=== PATIENT | female | born 1960 | race Caucasian/White ===

== ENCOUNTER 2017-11-25 06:29 | Inpatient (IN) | payer OTHER ==
[2017-11-03 13:31] VITALS: BMI 38.0
--- NOTE | 2017-11-03 14:12 | PAT Medication Instructions ---
Service Date Nov 03, 2017. Current Home Medication List Albuterol Hfa (Ventolin Hfa), 2 PUFFS INH Q6H PRN for PRN Alprazolam (Xanax), 0.25 MG PO BID Amlodipine (Norvasc), 10 MG PO QAM Chlorthalidone (Hygroton), 25 MG PO QAM Cyclobenzaprine Hcl (Flexeril), 10 MG PO HS PRN for RN Diphenhydramine-Acetaminophen (Percogesic), 2 TAB PO PRN Duloxetine HCl (Cymbalta), 1 CAP PO BID Fluticasone Furoate-Vilanterol (Breo Ellipta), 1 PUFF INH QAM Lisinopril (Lisinopril), 20 MG PO QAM Magnesium Sulfate (Laxative) (Epsom Salt), 1 DOSE TOP PRN Multiple Vitamins W/ Minerals (Hair Skin and Nails Formu), 2 TAB PO QAM Multivitamin (Multivitamin), 2 TAB PO QAM Pantoprazole (Protonix), 40 MG PO QAM Rizatriptan Benzoate (Maxalt), 10 MG PO UD PRN for RN Rosuvastatin Calcium (Crestor), 10 MG PO QAM [Vicodin], 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 Instructions For Your Scheduled Surgery - Hold the following medications the morning of surgery: Chlorthalidone (Hygroton), 25 MG PO QAM Cyclobenzaprine Hcl (Flexeril), 10 MG PO HS PRN for RN Lisinopril (Lisinopril), 20 MG PO QAM Magnesium Sulfate (Laxative) (Epsom Salt), 1 DOSE TOP PRN Multiple Vitamins W/ Minerals (Hair Skin and Nails Formu), 2 TAB PO QAM Multivitamin (Multivitamin), 2 TAB PO QAM - Take the following medications the morning of surgery with a sip of water: Albuterol Hfa (Ventolin Hfa), 2 PUFFS INH Q6H PRN for PRN (if needed, and bring it with you to the hospital) Alprazolam (Xanax), 0.25 MG PO BID Amlodipine (Norvasc), 10 MG PO QAM Diphenhydramine-Acetaminophen (Percogesic), 2 TAB PO PRN (if needed, can be taken up to four hours before surgery) Duloxetine HCl (Cymbalta), 1 CAP PO BID Fluticasone Furoate-Vilanterol (Breo Ellipta), 1 PUFF INH QAM Pantoprazole (Protonix), 40 MG PO QAM Rizatriptan Benzoate (Maxalt), 10 MG PO UD PRN for RN (if needed) Rosuvastatin Calcium (Crestor), 10 MG PO QAM [Vicodin], 1 TAB PO TID PRN for RN (if needed, can be taken up to four hours before surgery) - Take the following medications as scheduled the night before surgery: Albuterol Hfa (Ventolin Hfa), 2 PUFFS INH Q6H PRN for PRN (if needed) Alprazolam (Xanax), 0.25 MG PO BID Amlodipine (Norvasc), 10 MG PO QAM Cyclobenzaprine Hcl (Flexeril), 10 MG PO HS PRN for RN (if needed) Diphenhydramine-Acetaminophen (Percogesic), 2 TAB PO PRN (if needed) Duloxetine HCl (Cymbalta), 1 CAP PO BID Rizatriptan Benzoate (Maxalt), 10 MG PO UD PRN for RN (if needed) [Vicodin], 1 TAB PO TID PRN for RN (if needed) If you have any questions please call us at [phone] or [phone] or [phone]
--- NOTE | 2017-11-03 15:03 | DIAGNOSTIC IMAGING REPORT ---
CHEST 2 VIEWS ROUTINE CLINICAL HISTORY: Preoperative evaluation. COMPARISON STUDY: No previous studies for comparison. FINDINGS: Lung volumes are normal. There is no pneumothorax or pleural effusion. There is no consolidation or evidence for pulmonary edema. Cardiac size is normal. Mediastinal contours are normal. IMPRESSION: No acute cardiopulmonary findings. Electronically signed by: Afshin Stone M.D. 11/03/2017 3:01 PM Dictated Date/Time: 11/03/2017 3:01 PM
[2017-11-03 15:57] LABS: BASO % 0.4 %; BASO ABS # 0.03 K/uL (0-0.2); EOS % 5.1 %; EOS ABS # 0.36 K/uL (0-0.5); HEMOGLOBIN 14.1 g/dL (12.0-16.0); IG# 0.01 K/uL (0.00-0.02); LYMPH % 18.8 %; LYMPH ABS # 1.33 K/uL (1.2-3.4); MEAN CELL VOLUME 85.5 fL (80-100); MEAN CORPUSCULAR HGB CONC 32.8 g/dl (32-36); MONO % 5.9 %; MONO ABS # 0.42 K/uL (0.11-0.59); NEUT % 69.7 %; NEUT ABS # 4.91 K/uL (1.4-6.5); PLATELET COUNT 309 K/uL (130-400); RED CELL DISTRIBUTION WIDTH CV 13.4 % (11.5-14.5); RED CELL DISTRIBUTION WIDTH SD 42.4 fL (36.4-46.3); WHITE BLOOD COUNT 7.06 K/uL (4.8-10.8)
[2017-11-03 16:06] LABS: PTT PATIENT 27.1 SECONDS (21.0-31.0)
[2017-11-03 16:08] LABS: ALBUMIN 3.7 gm/dl (3.4-5.0); CREATININE 0.96 mg/dl (0.60-1.20); POTASSIUM 4.1 mmol/L (3.5-5.1)
[2017-11-04 06:30] LABS: HEMOGLOBIN A1C 5.6 % (4.5-5.6)
--- NOTE | 2017-11-12 10:54 | HISTORY & PHYSICAL EXAMINATION ---
DATE OF ADMISSION: 11/25/2017 CHIEF COMPLAINT: Right knee pain. HISTORY OF PRESENT ILLNESS: Francia is a 57-year-old female with multiple year history of right greater than left knee pain. The patient rates her pain 8/10. She has pain with her daily activities. She has limited standing and walking tolerance. Pain is worse with weightbearing. The patient has had injections, bracing, Vicodin and [id number] Percogesic over the years without relief. She has failed conservative treatment and is scheduled for right knee replacement with Dr. Huitron. PAST MEDICAL HISTORY: Hypertension, hypercholesterolemia, asthma, fibromyalgia. She denies heart disease, diabetes or DVT. PAST SURGICAL HISTORY: x3, tubal ligation, tonsillectomy, left carpal tunnel, left knee meniscectomy, low back surgery, colostomy with colostomy reversal, hernia repair and gastric bypass, appendectomy. SOCIAL HISTORY: The patient denies alcohol or tobacco use. She lives in a single lar[place] home. She lives with her granddaughter and is retired. FAMILY HISTORY: Negative for DVT. MEDICATIONS: Ventolin 90 mcg, Breo inhaler 100/25 mcg, Xanax 0.25 mg b.i.d., Cymbalta 30 mg b.i.d., lisinopril 20 mg daily, chlorthalidone 25 mg daily, Crestor 10 mg daily, Protonix 40 mg daily, Norvasc 10 mg daily, Flexeril 10 mg p.r.n., Vicodin 5/325 p.r.n., Maxalt 10 mg p.r.n. ALLERGIES: ASPIRIN, VALIUM, IMITREX, PERCOCET, CORGARD, INDERAL. REVIEW OF SYSTEMS: See HPI. Ten other systems reviewed, all negative. PHYSICAL EXAMINATION: VITAL SIGNS: Height 5 foot 5 inches, weight 233 pounds, BMI 39. GENERAL: This is a well developed, well nourished female who is alert and oriented x3. Mood and affect are appropriate. HEENT: Normocephalic, atraumatic. Mucous membranes are moist and intact. NECK: Supple without lymphadenopathy. HEART: Regular rate and rhythm without murmurs, rubs or gallops. LUNGS: Clear to auscultation without wheezes or rhonchi. ABDOMEN: Soft and nontender. Bowel sounds are equal and active. EXTREMITIES: No ecchymosis, redness or warmth. She has varus deformity. Range of motion is from 15-100 degrees with no laxity. She has moderate effusion. She is neurovascularly intact. X-RAY EXAMINATION: AP and lateral views show joint space narrowing and osteophyte formation. IMPRESSION: Degenerative joint disease, right knee. PLAN: The patient will be admitted for a right total knee arthroplasty. We will plan on aspirin for DVT prophylaxis. She will have [facility] for home physical therapy upon discharge. Her PCP is Dr. Mccormick in [place].
[2017-11-25] VITALS (10 sets, daily range): BP systolic 114–196; BP diastolic 63–85; PULSE 58–88; TEMP 36.4–36.5; O2SAT 95–100; Ht 165.1 cm; Wt 105.4 kg
[~2017-11-25] VITALS: Ht 165.1 cm; Wt 105.4 kg
[~2017-11-25 06:29] MED LIST: ACETAMINOPHEN 500 MG TAB PO SCH; ALPR-411 PO; AMLO-114 PO; CRS/10 PO; CYCL10TA6 PO; CYM/30 PO; CeleBREX 200 MG CAP PO SCH; DEXAMETHASONE 4 MG TAB PO SCH; FAMOTIDINE 20 MG TAB PO SCH; FLUT1INH INH; GABAPENTIN 600 MG PO SCH; HYG/25 PO; LACTATED RINGER'S 1000ML 1,000 ML IV SCH; LACTATED RINGER'S 1000ML 500 ML IV SCH; LSN20 PO; MAGNPOW TOP; METOCLOPRAMIDE HCL 10 MG TAB PO SCH; MULT-1018 PO; MULT-506 PO; PANT40TA PO; PHEN30TA PO; RIZA10TA18 PO; ROPIVACAINE 5MG/ML 30 ML 150 MG, BUPIVACAINE 0.5% MPF INJ 30 ML, EpINEphrine HCL INJ 0.... INFIL SCH; VICODIN PO; VNTHFA/IN INH
[2017-11-25] MEDS ORDERED: BUPIVACAINE 0.5 % 5 MG/1 ML PF 10ML VIAL ONE (06:41)
--- NOTE | 2017-11-25 06:52 | History & Physical Bridge Note ---
H&P Re-Evaluation Bridge Note: I have examined the patient, reviewed the History & Physical and in the interval since the performance of the History & Physical I have noted the following changes of clinical significance: No changes noted
[2017-11-25] MEDS ORDERED: MIDAZOLAM HCL 1 MG/ML 2ML VIAL ONE (07:15)
[2017-11-25] MEDS ORDERED: ONDANSETRON INJ 2 MG/ML 2 ML VIAL ONE (07:15)
[2017-11-25] MEDS ORDERED: FENTANYL CITRATE INJ 50 MCG/1 ML 2 ML VIAL ONE ×2 (07:15→09:10)
[2017-11-25] MEDS ORDERED: PROPOFOL IV EMULSION 10 MG/ML 20 ML VIAL IV ONE ×2 (07:15→07:32)
[2017-11-25] MEDS ORDERED: LIDOCAINE HCL 2% 2 ML VIAL (20MG/ML) ONE (07:15)
[2017-11-25] MEDS: CEFAZOLIN 2000MG IV PUSH 15 ML IV SCH ×2 (07:29→11:23)
[2017-11-25] MEDS: TRANEXAMIC ACID INJ 1,000 MG x 2 Bags IV SCH ×4 (07:30→11:24)
[2017-11-25] MEDS ORDERED: ONDANSETRON INJ 2 MG/ML 2 ML VIAL IV PRN ×2 (07:45→10:15)
[2017-11-25] MEDS ORDERED: FENTANYL CITRATE INJ 50 MCG/1 ML 2 ML VIAL IV PRN (07:45)
[2017-11-25] MEDS ORDERED: EpHEDrine SULFATE INJ 50 MG/ML AMP IV PRN (07:45)
[2017-11-25] MEDS ORDERED: ATROPINE SULFATE 0.1 MG/ML 5ML SYR IV PRN (07:45)
[2017-11-25] MEDS ORDERED: BUPIVACAINE 0.25% 30 ML VIAL ONE (07:57)
[2017-11-25] MEDS ORDERED: POVIDONE-IODINE OP SOLN 30 ML BTL ONE (07:58)
[2017-11-25] MEDS ORDERED: BACITRACIN 50000 UNIT VIAL ONE (07:58)
[2017-11-25] MEDS ORDERED: ORTHO JOINT ANESTHETIC ONE (07:58)
[2017-11-25] MEDS ORDERED: HYDROmorphone INJ 2 MG/ML SYR/VIAL ONE (08:50)
[2017-11-25] MEDS ORDERED: RIZATRIPTAN BENZOATE 10 MG TAB PO PRN (10:15)
[2017-11-25] MEDS ORDERED: MoRPHine SULFATE 4 MG/ML 1 ML CARP\\VIAL IV PRN (10:15)
[2017-11-25] MEDS ORDERED: ALBUTEROL HFA 8 GM INHALER INH PRN (10:15)
[2017-11-25] MEDS ORDERED: ALUMINUM/MAGNESIUM/SIMETH (MAALOX MAX) 30 ML UDC PO PRN (10:15)
[2017-11-25] MEDS ORDERED: MAGNESIUM HYDROXIDE SUSP 30 ML UDC PO PRN (10:15)
[2017-11-25] MEDS ORDERED: BISACODYL 10 MG SUPP PR PRN (10:15)
--- NOTE | 2017-11-25 10:32 | DIAGNOSTIC IMAGING REPORT ---
TWO VIEWS RIGHT KNEE CLINICAL HISTORY: Postoperative examination. FINDINGS: AP and crosstable lateral portable views of the right knee are obtained. A right knee arthroplasty is in near anatomic alignment. There has been undersurface remodeling of the patella. No acute fracture is seen. There are expected postoperative changes around the knee including a surgical drain, soft tissue edema, and subcutaneous gas. IMPRESSION: Expected postoperative changes status post right knee arthroplasty. No acute fracture is seen. Electronically signed by: Evaristo Christianson M.D. 11/25/2017 10:31 AM Dictated Date/Time: 11/25/2017 10:31 AM
--- NOTE | 2017-11-25 10:35 | OPERATIVE REPORT ---
DATE OF OPERATION: 11/25/2017 PREOPERATIVE DIAGNOSIS: Degenerative joint disease, right knee. POSTOPERATIVE DIAGNOSIS: Degenerative joint disease, right knee. PROCEDURE: Right total knee arthroplasty. SURGEON: Yefri Huitron MD INTERNATIONAL SOURCING MANAGER: FANNIE Zuleta ANESTHESIA: General. COMPLICATIONS: None. IMPLANTS USED: Femoral size 4, tibia size 4, tibial poly 9, patella size 36. DISPOSITION: Recovery room, stable. OPERATION AND FINDINGS: Following induction of general anesthesia, the patient's right leg was prepped and draped in the usual sterile manner. Limb was exsanguinated with an Esmarch bandage and tourniquet was inflated to 350 mmHg. A longitudinal incision was made anteriorly. Subcutaneous tissue was sharply dissected. Electrocautery was used for hemostasis. Prepatellar bursa was incised and median parapatellar incision was performed. Patella was everted and the knee was flexed. Fat pad was removed to aid in visualization and the anterior and posterior cruciate ligaments were removed. The medial face of the tibia was cleared of soft tissue first with a Bovie and a Kiser elevator. This tissue was retracted posteriorly using a blunt Hohmann. A Abraham retractor was used to expose the synovium above on the anterior aspect of the femur and this was removed down to bone. The PSI guide was placed on the distal femur and two pins were placed anteriorly and kept in position and two additional pins were placed distally and removed. The distal femoral cutting block was placed in position and the distal femoral cut was used in the +0 setting. Next, the cutting block was removed and the femoral 4 block was placed in the distal end of the femur. Care was taken to ensure appropriate external rotation and feeler gauge was used to ensure no notching would occur. The femoral block was centered on the distal femur and in the medial and lateral direction and was fixed using two bone screws. The gold pins were then removed. The oscillating saw was used to create the bone cuts and the distal femoral cutting block was removed and the reciprocating saw was used to further trim the femoral cuts as well as a deep in the area for the trochlear groove. Next, posterior condyle remnants were removed. Following this, a meniscal clamp and knife were utilized to remove the anterior portion of both medial and lateral meniscus. The proximal tibia PSI guide was placed into position and the proximal tibial cutting guide was screwed into position. The extra medullary alignment guide was utilized to ensure appropriate alignment. The proximal tibia was cut and the proximal tibial cutting block was removed and this bone fragment was removed. The appropriate guide was used to perform the notch cut on the distal femur and a lamina shipfitter helper and a cochlear knife were utilized to finish both medial and lateral meniscectomies to remove any remnants of the posterior or anterior cruciate ligaments. Following this, the distal femoral component was impacted into position and blunt Chester was used to sublux the tibia anteriorly. The proximal tibia was sized and a 4 tibial tray was chosen as the size to be used. This was put into position and appropriate external rotation and a double check with extramedullary alignment guide was performed. The canal for the tibial stem was prepared first with a 17 mm drill and then the punch and a mallet and the trial tibial poly was placed. A 9 was chosen the size to be used. It was brought to extension and the patella was prepared with the patellar reamer. A 36 component was chosen the size to be used. The trial component was placed and knee was taken through a full range of motion and there was found to be no lateral subluxation of the tibia. No lateral release was required. The trials were all removed. The final components were obtained and assembled. Cement was mixed. The knee was thoroughly irrigated and the ortho mix was injected about the knee joint. The final components were cemented into position. After thoroughly suctioning and drying the bone ends, all excess cement was removed. The knee was held in extension while the cement hardened. The wound was irrigated and closed over a Hemovac drain. #1 Vicryl was used to close the extensor mechanism. Subcutaneous tissues closed using 0 Dexon. Skin was closed with sterling. Sterile dressing of Adaptic, 4 x 4's, sterile Webril, and Jerrell was applied. The patient tolerated the procedure well. Due to the complex nature of the procedure, the entire surgery was performed with the operational assistance of FANNIE Kc. The speech language pathology assistant, under direct supervision, was involved in the actual performance of all aspects of the surgical procedure including hemostasis, tissue retraction and incision, instrument management, patient positioning, and wound closure. I attest to the content of the Intraoperative Record and any orders documented therein. Any exception s are noted below.
--- NOTE | 2017-11-25 12:25 | Anesthesiology Progress Note ---
Anesthesia Post Op Note Date & Time Nov 25, 2017 at 12:24 Vital Signs Pain Intensity: 0.0 Vital Signs Past 12 Hours Date Time Temp Pulse Resp B/P (MAP) Pulse Ox O2 Delivery O2 Flow Rate FiO2 11/25/17 11:40 36.4 88 16 163/84 (110) 97 Nasal Cannula 3.0 11/25/17 11:40 97 Nasal Cannula 3.0 11/25/17 11:40 97 Room Air 11/25/17 11:15 75 14 141/64 97 Nasal Cannula 3 11/25/17 11:00 36.5 73 13 150/70 99 Nasal Cannula 3 11/25/17 10:45 88 14 167/79 99 Oxymask 3 11/25/17 10:35 79 14 168/84 96 Oxymask 3 11/25/17 10:25 84 14 156/77 97 Oxymask 5 11/25/17 10:15 82 14 145/72 97 Oxymask 10 11/25/17 10:09 36.2 95 14 184/86 100 Oxymask 10 11/25/17 07:00 73 20 196/85 96 Room Air Notes Mental Status: alert / awake / arousable, participated in evaluation Pt Amnestic to Procedure: Yes Nausea / Vomiting: adequately controlled Pain: adequately controlled Airway Patency, RR, SpO2: stable & adequate BP & HR: stable & adequate Hydration State: stable & adequate Anesthetic Complications: no major complications apparent
--- NOTE | 2017-11-25 13:20 | Medical Consult ---
Consultation Date of Consultation: Nov 25, 2017. Attending Physician: Yefri Huitron M.D. Reason for Consultation: medical co management History of Present Illness 57 years old female with PMHx of HTN, Dyslipidemia, anxiety, depression, asthma , fibromyalgia, morbid obesity and RACH. she has severe right knee arthritis failed out patient conservative measures and presented to the hospital for an elective R TKA. procedure went uneventful. during recovery patient was found to breath at a low rate, as low as 5 breaths per minute at some point. when I discussed this with the patient she admitted to have RACH, not using her cpap machine otherwise she has no complaint denies drinking or smoking Social History Smoking Status: Never Smoker Allergies Coded Allergies: Oxycodone (Verified Allergy, Unknown, HIVES, SWEATS, ELEVATED BP, 11/03/17) Sumatriptan (Verified Allergy, Unknown, STIFF MUSCLES, INCREASES PAIN ALL OVER, 11/03/17) Aspirin (Verified Adverse Reaction, Unknown, NOSEBLEEDS, 11/22/17) Diazepam (Verified Adverse Reaction, Unknown, REVERSE EFFECTS, 11/22/17) Nadolol (Verified Adverse Reaction, Unknown, NOSEBLEEDS BRUISING LOW BP, ) Propranolol (Verified Adverse Reaction, Unknown, CAUSES MIGRAINES, 11/22/17 ) Current Inpatient Medications Current Inpatient Medications Medications (Trade) Dose Ordered Sig/Alvin Route Start Time Stop Time Status Last Admin Dose Admin Cefazolin Sodium 15 ml @ 3.75 mls/ min PREOP IV 11/25/17 06:00 11/25/17 18:00 Acetaminophen (Tylenol Tab) 1,000 mg PREOP PO 11/25/17 06:00 11/25/17 18:00 11/25/17 07:27 1,000 MG Celecoxib (CeleBREX CAP) 200 mg PREOP PO 11/25/17 06:00 11/25/17 18:00 11/25/17 07:26 200 MG Dexamethasone (Decadron Tab) 8 mg PREOP PO 11/25/17 06:00 11/25/17 18:00 11/25/17 07:23 8 MG Famotidine (Pepcid Tab) 20 mg PREOP PO 11/25/17 06:00 11/25/17 18:00 11/25/17 07:25 20 MG Gabapentin (Neurontin Cap) 600 mg PREOP PO 11/25/17 06:00 11/25/17 18:00 11/25/17 07:24 600 MG Metoclopramide HCl (Reglan Tab) 10 mg PREOP PO 11/25/17 06:00 11/25/17 18:00 11/25/17 07:25 10 MG Lactated Ringer's 1,000 ml @ 15 mls/hr Q24H IV 11/25/17 06:00 11/26/17 05:59 Albuterol (Ventolin Hfa Inhaler) 2 puffs Q6H PRN INH 11/25/17 10:15 12/25/17 10:14 Amlodipine Besylate (Norvasc Tab) 10 mg QAM PO 11/26/17 09:00 12/26/17 08:59 Chlorthalidone (Hygroton Tab) 25 mg QAM PO 11/25/17 13:00 12/25/17 12:59 Duloxetine HCl (Cymbalta Cap) 30 mg BID PO 11/25/17 21:00 12/25/17 20:59 UNV Lisinopril (Zestril Tab) 20 mg QAM PO 11/25/17 13:00 12/25/17 12:59 Pantoprazole Sodium (Protonix Tab) 40 mg QAM PO 11/26/17 09:00 12/26/17 08:59 Rizatriptan Benzoate (Maxalt Tab) 10 mg UD PRN PO 11/25/17 10:15 12/25/17 10:14 Rosuvastatin Calcium (Crestor Tab) 10 mg QAM PO 11/26/17 09:00 12/26/17 08:59 Miscellaneous Information (Order Awaiting Action) 1 ea QS N/A 11/25/17 16:00 12/25/17 15:59 Morphine Sulfate (MoRPHine SULFATE INJ) 4 mg Q4HWA PRN IV 11/25/17 10:15 12/09/17 10:14 Potassium Chloride/Dextrose/ Sod Cl 1,000 ml @ 100 mls/hr Q10H IV 11/25/17 13:30 11/26/17 13:29 Cefazolin Sodium 2000 mg/Syringe 15 ml @ 3.75 mls/ min Q8H IV 11/25/17 16:00 11/26/17 00:03 Acetaminophen/ Hydrocodone Bitart (Healy 5/325 Tab) 1 TABLET FOR PAIN RATING... Q4H PRN PO 11/25/17 10:15 12/09/17 10:14 Magnesium Hydroxide (Milk Of Magnesia Susp) 30 ml Q6H PRN PO 11/25/17 10:15 12/25/17 10:14 Bisacodyl (Dulcolax Supp) 10 mg DAILY PRN DE 11/25/17 10:15 12/25/17 10:14 Senna (Senokot Tab) 17.2 mg HS PO 11/25/17 21:00 12/25/17 20:59 Docusate Sodium (coLACE CAP) 100 mg BID PO 11/25/17 21:00 12/25/17 20:59 Al Hydrox/Mg Hydrox/Simethicone (Maalox Max Susp) 15 ml Q4H PRN PO 11/25/17 10:15 12/25/17 10:14 Multivitamins (Multivitamin Tab) 1 tab QAM PO 11/26/17 09:00 12/26/17 08:59 Ondansetron HCl (Zofran Inj) 4 mg Q6H PRN IV 11/25/17 10:15 12/25/17 10:14 Ferrous Gluconate (Ferrous Gluconate Tab) 324 mg TIDM PO 11/25/17 17:45 12/25/17 17:44 Tramadol HCl (Ultram Tab) 1 tablet for pain rating... Q4H PRN PO 11/25/17 10:15 12/25/17 10:14 Rivaroxaban (Xarelto Tab) 10 mg Q24H PO 11/26/17 09:00 12/07/17 09:01 Alprazolam (Xanax Tab) 0.25 mg BID PRN PO 11/25/17 21:00 12/25/17 20:59 Review of Systems Review of system Constitutional: No fever / no chills / no sweats / no weakness / no fatigue Eyes: no blurring of vision / no eye pain / no discharge / no redness ENT: no hearing loss / no epistaxis /no swallowing problems Respiratory: no cough / no wheezing / no SOB / no hemoptysis Cardiovascular: no Chest pain / no lower extremity edema / no palpitation Abdomen: no pain / no nausea / no vomiting / no constipation Musculoskeletal: no joint pain / no muscle pain / no joint swelling Genitourinary: no dysuria / no incontinence / no urinary retention Neurologic: no focal weakness / no numbness/tingling / no ataxia Psychiatric: no depression symptoms / no anxiety / no insomnia Endocrine: no excessive thirst / no excessive urination Hematologic: no abnormal bleeding / no bruising / no LN swelling Skin: No rash / no pallor Physical Exam Date Time Temp Pulse Resp B/P (MAP) Pulse Ox O2 Delivery O2 Flow Rate FiO2 11/25/17 12:40 77 16 135/71 (92) 100 3.0 11/25/17 12:10 87 12 125/72 (89) 99 Nasal Cannula 3.0 11/25/17 11:40 36.4 88 16 163/84 (110) 97 Nasal Cannula 3.0 11/25/17 11:40 97 Nasal Cannula 3.0 11/25/17 11:40 97 Room Air 11/25/17 11:15 75 14 141/64 97 Nasal Cannula 3 11/25/17 11:00 36.5 73 13 150/70 99 Nasal Cannula 3 11/25/17 10:45 88 14 167/79 99 Oxymask 3 11/25/17 10:35 79 14 168/84 96 Oxymask 3 11/25/17 10:25 84 14 156/77 97 Oxymask 5 11/25/17 10:15 82 14 145/72 97 Oxymask 10 11/25/17 10:09 36.2 95 14 184/86 100 Oxymask 10 11/25/17 07:00 73 20 196/85 96 Room Air Physical examination obese General patient appears to be comfortable, not in acute distress HEENT: Atraumatic , normocephalic /no jaundice /no pallor /anicteric /no dry mucous membrane /normal external ear inspection Neck: Supple /no swelling /central trach Heart: S1/S2 normal/regular rate and rhythm/no gallop /no rub /no murmur Lungs: Clear to auscultation bilaterally/normal chest with expansion/no rhonchi/ no rales/no wheezing/no use of accessory muscles of respiration Abdomen: Soft/nontender/no guarding/no rebound/no organomegaly/no pulsatile mass Musculoskeletal: No swelling/no edema/no tenderness/normal range of motion, right lower ext is wrapped, moves her toes Neuro exam: Awake alert oriented 3/cranial nerves II through XII appear to be intact/sensation intact/moves all extremities/no abnormal movements Psychiatric evaluation: No depressed mood/normal affect Skin: No rash on exposed skin area/no erythema Extremity: Normal pulse/no pitting edema/no clubbing or cyanosis Endocrine/lymphatic: No obvious lymphadenopathy /no lymphedema Assessment & Plan 57 years old female with PMHx of HTN, Dyslipidemia, anxiety, depression, asthma , fibromyalgia, morbid obesity and RACH. she has severe right knee arthritis s/p R TKA due to her sleep apnea, she breathes at low rate while sleeping Assessment: severe right knee osteoarthritis that failed outpatient conservative measures. Patient presented to the hospital for an elective orthopedic procedure RACH non compliant with CPAP HTN Obesity dyslipidemia fibromyalgia depression anxiety Plan Status post orthopedic procedure, went uneventful full Patient tolerated procedure well with minimal blood loss likely she has severe sleep apnea, hence she stops breathing when she fall asleep, I do not know if she has an underlying COPD as patient has not use her cpap in years as a matter of fact she got rid of the machine, I will not start cpap now, she needs to repeat sleep study as an out patient, her vitals are currently normal as anaesthesia wearing off keep O2 sat between 91-93% keep O2 sat monitor in the room Appears to be stable Continue outpatient medications Follow-up labs Ensure adequate oral/parenteral intake Pain management Physical therapy initiation as per primary orthopedic team DVT prophylaxis as per the choice of primary orthopedic team
[2017-11-25] MEDS: D5W AND 1/2NSS + 20MEQ KCL 1,000 ML IV SCH ×2 (13:30→21:46)
[2017-11-25] MEDS: LISINOPRIL 20 MG TAB PO SCH (15:19)
[2017-11-25] MEDS: CHLORTHALIDONE 25 MG TAB PO SCH (15:19)
[2017-11-25] MEDS: CEFAZOLIN IV 2,000 MG in SYRINGE 0 ML IV SCH ×2 (16:15→23:22)
[2017-11-25] MEDS: FERROUS GLUCONATE 324 MG TAB PO SCH (18:08)
[2017-11-25] MEDS: HYDROCODONE/ACETAMIN 5/325MG TAB PO PRN (19:42)
[2017-11-25] MEDS ORDERED: ALPRAZOLAM 0.5 MG TAB PO PRN (21:00)
[2017-11-25] MEDS: SENNA 8.6 MG TAB PO SCH ×2 (21:00→21:42)
[2017-11-25] MEDS ORDERED: ALPRAZOLAM 0.5 MG TAB PO SCH (21:00)
[2017-11-25] MEDS: TRAMADOL HCL 50 MG TAB PO PRN (21:41)
[2017-11-25] MEDS: DOCUSATE SODIUM 100 MG CAP PO SCH (21:41)
[2017-11-25] MEDS: DULOXETINE (CYMBALTA) 30 MG CAP PO SCH (21:42)
[2017-11-26] VITALS (8 sets, daily range): BP systolic 100–149; BP diastolic 60–73; PULSE 58–72; TEMP 36.5–36.8; O2SAT 3–100
[2017-11-26] MEDS: TRAMADOL HCL 50 MG TAB PO PRN ×4 (02:36→21:40)
--- NOTE | 2017-11-26 07:38 | Orthopedic Progress Note ---
Orthopedic Progress Note Date of Service Nov 26, 2017. Subjective Post OP Day: 1 Reports: feeling well Objective N/V intact, dressing C/D/I (Hemovac in place), toes mobile Date Time Temp Pulse Resp B/P (MAP) Pulse Ox O2 Delivery O2 Flow Rate FiO2 11/26/17 03:26 36.5 60 16 120/73 (89) 98 Nasal Cannula 3.0 11/25/17 23:25 98 Nasal Cannula 2.0 11/25/17 23:01 36.5 65 20 115/65 (82) 98 Nasal Cannula 3.0 11/25/17 19:45 Room Air 11/25/17 19:24 36.5 60 9 139/64 (89) 95 Room Air 11/25/17 15:14 36.4 58 7 129/65 (86) 100 Oxymask 3.0 11/25/17 14:44 61 8 114/63 (80) 100 3.0 11/25/17 13:40 69 6 124/68 (86) 100 3.0 11/25/17 12:40 77 16 135/71 (92) 100 3.0 11/25/17 12:10 87 12 125/72 (89) 99 Nasal Cannula 3.0 11/25/17 11:40 36.4 88 16 163/84 (110) 97 Nasal Cannula 3.0 11/25/17 11:40 97 Nasal Cannula 3.0 11/25/17 11:40 97 Room Air 11/25/17 11:15 75 14 141/64 97 Nasal Cannula 3 11/25/17 11:00 36.5 73 13 150/70 99 Nasal Cannula 3 11/25/17 10:45 88 14 167/79 99 Oxymask 3 11/25/17 10:35 79 14 168/84 96 Oxymask 3 11/25/17 10:25 84 14 156/77 97 Oxymask 5 11/25/17 10:15 82 14 145/72 97 Oxymask 10 11/25/17 10:09 36.2 95 14 184/86 100 Oxymask 10 Laboratory Results 24 Hours: Test 11/26/17 07:30 Additional Notes: Labs pending Assessment & Plan Assessment: 57 yo female stable POD #1 s/p right TKA Plan: 1. Med management 2. DVT prophylaxis- Xarelto, SCDs 3. PT/OT 4. D/C planning- home w/ HH
--- NOTE | 2017-11-26 07:39 | Discharge Instructions ---
Discharge Instructions Date of Service Nov 26, 2017. Admission Reason for Admission: Right Knee Osteoarthritis Discharge Discharge Diagnosis / Problem: Right knee arthritis Discharge Goals Goal(s): Decrease discomfort, Improve function Activity Recommendations Activity Limitations: as noted below Weightbearing Status: Right weightbearing (as tolerated) . Instructions / Follow-Up Instructions / Follow-Up ACTIVITY RECOMMENDATIONS: SELF CARE INSTRUCTIONS AFTER TOTAL KNEE REPLACEMENT A. You may need to continue a physical therapy program after discharge from the hospital. There are several options available to you. Your doctor will assist you in selecting the best one for you. 1. An out-patient facility 2 to 3 times a week for therapy or home therapy. 2. Continue working on all exercises taught to you in the hospital. Your goals should be to increase bending of your knee to 90 degrees and beyond and to fully straighten your knee. B. You may progress at your own pace from walking with a walker or crutches to a cane; then to no assistive devices. C. Make walking a part of your daily routine. Be up as much as comfortable with rest periods throughout the day. Rest with leg elevation is very important. Use the ice wrap frequently for the first 3-4 weeks. D. There are no restrictions on activities. You may ride in a car, shop, participate in trademark attorney and all social activities. E. Wear the long elastic stockings (KARLOS hose) 20 hours a day for 2 weeks after surgery. They can be removed several times a day for laundering and for a bath. F. You may shower, no tub baths until cleared by your doctor. SPECIAL CARE INSTRUCTIONS: VERY IMPORTANT TO READ AND REVIEW A. There are a few signs you need to watch for after you are home. Call [facility] if you notice any of the followin. Increased severe knee pain. Some pain is expected especially when you exercise. 2. Increased swelling in your leg or knee; pain or swelling of the calf muscle in either lower leg. 3. Any fluid drainage from the incision. 4. Shortness of breath or chest pain. B. Please call [facility] at if you have any concerns or questions about your operation or recovery. The doctor or his nurse will return your call promptly. C. You must take antibiotics before dental work, bladder, bowel or other surgery. Your doctor will provide you with a permanent care to carry describing this precaution. IMPORTANT: * REMEMBER TO TAKE ASPIRIN, 81 MG, TWICE DAILY FOR 4 WEEKS UNLESS OTHERWISE DIRECTED. THIS IS YOUR BLOOD THINNER. * HIGH RISK PATIENTS MAY BE PRESCRIBED A STRONGER BLOOD THINNER. THIS WILL BE PROVIDED AT DISCHARGE. * CALL IF INCREASED PAIN, REDNESS, DRAINAGE OR FEVER GREATER THAT 101. * WEAR KARLOS HOSE 20 HOURS PER DAY FOR 2 WEEKS. * YOU MAY HAVE A LARGE BAND-AID LIKE DRESSING (SILVERON). THIS WILL REMAIN ON YOUR INCISION FOR 7 DAYS, THEN CAN BE REMOVED. IF INCISION IS LEAKING THROUGH DRESSING, CALL THE OFFICE . FOLLOW UP VISIT: If appointment is not already scheduled: Please call [facility] to make a follow-up appointment for 2 weeks after your surgery at . Current Hospital Diet Patient's current hospital diet: Regular Diet Discharge Diet Recommended Diet: Regular Diet Procedures Procedures Performed: Right Total Knee Arthroplasty Pending Studies Studies pending at discharge: no Laboratory Results Hemoglobin A1c Test 11/03/17 14:25 Range/Units Estimated Average Glucose 114 mg/dl Hemoglobin A1c 5.6 4.5-5.6 % Medical Emergencies . Who to Call and When: Medical Emergencies: If at any time you feel your situation is an emergency, please call 911 immediately. . Non-Emergent Contact Non-Emergency issues call your: Surgeon Call Non-Emergent contact if: temperature is above 101.5, your pain is not controlled, wound has increased drainage, wound has increased redness . "Provider Documentation" section prepared by Vikas Olivo PA-C. . [place] Drug Monitoring Program Search Results: patient reviewed within database, no issues identified
[2017-11-26 07:45] LABS: EOS % 0.1 %; EOS ABS # 0.01 K/uL (0-0.5); HEMATOCRIT 37.5 % (37-47); HEMOGLOBIN 12.5 g/dL (12.0-16.0); IG# 0.03 K/uL (0.00-0.02); LYMPH % 7.1 %; LYMPH ABS # 0.94 K/uL (1.2-3.4); MEAN CELL VOLUME 85.6 fL (80-100); MEAN CORPUSCULAR HEMOGLOBIN 28.5 pg (25-34); MEAN CORPUSCULAR HGB CONC 33.3 g/dl (32-36); MEAN PLATELET VOLUME 8.9 fL (7.4-10.4); MONO % 6.5 %; MONO ABS # 0.86 K/uL (0.11-0.59); NEUT % 86.1 %; NEUT ABS # 11.43 K/uL (1.4-6.5); PLATELET COUNT 239 K/uL (130-400); RED CELL DISTRIBUTION WIDTH CV 13.2 % (11.5-14.5); RED CELL DISTRIBUTION WIDTH SD 41.8 fL (36.4-46.3); WHITE BLOOD COUNT 13.27 K/uL (4.8-10.8)
[2017-11-26] MEDS: D5W AND 1/2NSS + 20MEQ KCL 1,000 ML IV SCH (07:49)
--- NOTE | 2017-11-26 08:01 | Clinical Documentation Query ---
CLINICAL DOCUMENTATION QUERY 57 yo female s/p arthroplasty right knee has a urine micro positive with E.coli. In your clinical opinion is this patient being managed for: ( ) Urinary tract infection ( x ) Not Agree- this labwork is from 4/ outpatient workup, not current ( ) Other explanation of clinical findings (Please Explain. If no explanation given, this would be considered a no response.) ( ) Unable to determine ( ) Need to Discuss (Please call CDS via extension or qliq. If no interaction occurs this is considered a no response.) The medical record reflects the following clinical findings, treatment, and risk factors. Clinical Indicators: As above Treatment: UA/CS, Ancef IV Risk Factors: Female, surgical intervention Please clarify and document your clinical opinion in the progress notes and discharge summary. Terms such as "probable", "suspected", "likely", "questionable", "possible", or "still to be ruled out" are acceptable. IF IN AGREEMENT, YOU MUST DOCUMENT ABOVE DIAGNOSTIC STATEMENT IN DAILY PROGRESS NOTES AND DISCHARGE SUMMARY. This document is not part of the patient's record. Thank You, Madonna Martin RN [phone]
[2017-11-26] MEDS ORDERED: NURSING VERBAL MED ORDER ONE (08:15)
[2017-11-26 08:19] LABS: ALBUMIN 3.1 gm/dl (3.4-5.0); CREATININE 1.02 mg/dl (0.60-1.20); POTASSIUM 4.3 mmol/L (3.5-5.1)
[2017-11-26 08:22] LABS: TOTAL PROTEIN 6.3 gm/dl (6.4-8.2)
[2017-11-26] MEDS: FERROUS GLUCONATE 324 MG TAB PO SCH ×3 (08:25→18:03)
[2017-11-26] MEDS: DULOXETINE (CYMBALTA) 30 MG CAP PO SCH ×2 (09:04→21:40)
[2017-11-26] MEDS: POM~FLUTICASONE FUROATE-VILANTEROL 30 PUFFS/INHALER INH INH SCH (09:04)
[2017-11-26] MEDS: LISINOPRIL 20 MG TAB PO SCH (09:05)
[2017-11-26] MEDS: DOCUSATE SODIUM 100 MG CAP PO SCH ×2 (09:05→21:40)
[2017-11-26] MEDS: ROSUVASTATIN CALCIUM 10 MG TAB PO SCH (09:05)
[2017-11-26] MEDS: CHLORTHALIDONE 25 MG TAB PO SCH (09:06)
[2017-11-26] MEDS: RIVAROXABAN 10 MG TAB PO SCH (09:06)
[2017-11-26] MEDS: AMLODIPINE BESYLATE 5 MG TAB PO SCH (09:06)
[2017-11-26] MEDS: MULTIVITAMIN TAB PO SCH (09:07)
[2017-11-26] MEDS: PANTOprazole SOD 40 MG TAB PO SCH (09:07)
--- NOTE | 2017-11-26 09:40 | Hospitalist Progress Note ---
Hospitalist Progress Note Date of Service Nov 26, 2017. (Magda Isidro .[place]) Subjective Pt evaluation today including: conversation w/ patient, physical exam, chart review, lab review, review of inpatient medication list Voiding: no voiding problems Ms. Tesfaye is having mild to moderate pain in her right knee but otherwise no complaints. We did discuss her apparent sleep apnea and sequelae that extend from this condition. She is agreeable to a sleep study outpatient. She has a brother with sleep apnea also ROS Constitutional: no chills, aches, sweats or fever Respiratory: no sob,cough, sputum, or wheezing Cardiac: no chest pain, palpitations, edema, orthopnea or lightheadedness GI: no abdominal pain, nausea, vomiting, diarrhea or constipation : no dysuria or hesitancy Extremities: no joint pain or weakness Skin: no rash All other systems reviewed and negative (Magda Isidro .[place]) Medications Medications Administered Medications (Trade) Dose Ordered Sig/Alvin Route Start Time Stop Time Status Last Admin Dose Admin Acetaminophen (Tylenol Tab) 1,000 mg PREOP PO 11/25/17 06:00 11/25/17 18:00 DC 11/25/17 07:27 1,000 MG Celecoxib (CeleBREX CAP) 200 mg PREOP PO 11/25/17 06:00 11/25/17 18:00 DC 11/25/17 07:26 200 MG Dexamethasone (Decadron Tab) 8 mg PREOP PO 11/25/17 06:00 11/25/17 18:00 DC 11/25/17 07:23 8 MG Famotidine (Pepcid Tab) 20 mg PREOP PO 11/25/17 06:00 11/25/17 18:00 DC 11/25/17 07:25 20 MG Gabapentin (Neurontin Cap) 600 mg PREOP PO 11/25/17 06:00 11/25/17 18:00 DC 11/25/17 07:24 600 MG Metoclopramide HCl (Reglan Tab) 10 mg PREOP PO 11/25/17 06:00 11/25/17 18:00 DC 11/25/17 07:25 10 MG Tranexamic Acid 1000 mg/Sodium Chloride 110 ml @ 660 mls/hr TODAY@06,0630 IV 11/25/17 06:00 11/25/17 06:39 DC 11/25/17 07:30 660 MLS/HR Lactated Ringer's 500 ml @ 999 mls/hr Q31M IV 11/25/17 06:00 11/25/17 06:30 DC 11/25/17 07:44 999 MLS/HR Povidone Iodine (Betadine Ophthalmic Prep Solution) 30 ml STK-MED ONCE .ROUTE 11/25/17 07:58 11/25/17 07:59 DC 11/25/17 09:07 30 ML Bacitracin (Bacitracin Inj) 50,000 units STK-MED ONCE .ROUTE 11/25/17 07:58 11/25/17 07:59 DC 11/25/17 09:07 50,000 UNITS Amlodipine Besylate (Norvasc Tab) 10 mg QAM PO 11/26/17 09:00 12/26/17 08:59 11/26/17 09:06 10 MG Chlorthalidone (Hygroton Tab) 25 mg QAM PO 11/25/17 13:00 12/25/17 12:59 11/26/17 09:06 25 MG Duloxetine HCl (Cymbalta Cap) 30 mg BID PO 11/25/17 21:00 12/25/17 20:59 11/26/17 09:04 30 MG Lisinopril (Zestril Tab) 20 mg QAM PO 11/25/17 13:00 12/25/17 12:59 11/26/17 09:05 20 MG Pantoprazole Sodium (Protonix Tab) 40 mg QAM PO 11/26/17 09:00 12/26/17 08:59 11/26/17 09:07 40 MG Rosuvastatin Calcium (Crestor Tab) 10 mg QAM PO 11/26/17 09:00 12/26/17 08:59 11/26/17 09:05 10 MG Potassium Chloride/Dextrose/ Sod Cl 1,000 ml @ 100 mls/hr Q10H IV 11/25/17 13:30 11/26/17 08:12 DC 11/26/17 07:49 100 MLS/HR Cefazolin Sodium 2000 mg/Syringe 15 ml @ 3.75 mls/ min Q8H IV 11/25/17 16:00 11/26/17 00:03 DC 11/25/17 23:22 3.75 MLS/MIN Acetaminophen/ Hydrocodone Bitart ([place] 5/325 Tab) 1 TABLET FOR PAIN RATING... Q4H PRN PO 11/25/17 10:15 12/09/17 10:14 11/25/17 19:42 2 TAB Docusate Sodium (coLACE CAP) 100 mg BID PO 11/25/17 21:00 12/25/17 20:59 11/26/17 09:05 100 MG Multivitamins (Multivitamin Tab) 1 tab QAM PO 11/26/17 09:00 12/26/17 08:59 11/26/17 09:07 1 TAB Ferrous Gluconate (Ferrous Gluconate Tab) 324 mg TIDM PO 11/25/17 17:45 12/25/17 17:44 11/26/17 08:25 324 MG Tramadol HCl (Ultram Tab) 1 tablet for pain rating... Q4H PRN PO 11/25/17 10:15 12/25/17 10:14 11/26/17 08:25 100 MG Rivaroxaban (Xarelto Tab) 10 mg Q24H PO 11/26/17 09:00 12/07/17 09:01 11/26/17 09:06 10 MG Fluticasone/ Vilanterol (Breo Ellipta 100-25 Mcg/Inh) 1 puffs DAILY INH 11/26/17 09:00 12/26/17 08:59 11/26/17 09:04 1 PUFFS (Magda Isidro, [place]) Objective Vital Signs Date Time Temp Pulse Resp B/P (MAP) Pulse Ox O2 Delivery O2 Flow Rate FiO2 11/26/17 08:52 95 Room Air 11/26/17 08:05 3 3.0 11/26/17 08:02 36.5 60 16 140/70 (93) 100 3.0 11/26/17 03:26 36.5 60 16 120/73 (89) 98 Nasal Cannula 3.0 11/25/17 23:25 98 Nasal Cannula 2.0 11/25/17 23:01 36.5 65 20 115/65 (82) 98 Nasal Cannula 3.0 11/25/17 19:45 Room Air 11/25/17 19:24 36.5 60 9 139/64 (89) 95 Room Air 11/25/17 15:14 36.4 58 7 129/65 (86) 100 Oxymask 3.0 11/25/17 14:44 61 8 114/63 (80) 100 3.0 11/25/17 13:40 69 6 124/68 (86) 100 3.0 11/25/17 12:40 77 16 135/71 (92) 100 3.0 11/25/17 12:10 87 12 125/72 (89) 99 Nasal Cannula 3.0 11/25/17 11:40 36.4 88 16 163/84 (110) 97 Nasal Cannula 3.0 11/25/17 11:40 97 Nasal Cannula 3.0 11/25/17 11:40 97 Room Air 11/25/17 11:15 75 14 141/64 97 Nasal Cannula 3 11/25/17 11:00 36.5 73 13 150/70 99 Nasal Cannula 3 11/25/17 10:45 88 14 167/79 99 Oxymask 3 11/25/17 10:35 79 14 168/84 96 Oxymask 3 11/25/17 10:25 84 14 156/77 97 Oxymask 5 11/25/17 10:15 82 14 145/72 97 Oxymask 10 11/25/17 10:09 36.2 95 14 184/86 100 Oxymask 10 (Magda Isidro CRNP) Physical Exam Notes: General: no distress Eyes: normal inspection, PERLL Respiratory: chest non tender, clear to auscultation, normal breath sounds, no respiratory distress, no accessory muscle use Cardiac: regular rate and rhythm, no rub or gallop, 2/6 systolic murmur RUSB, no edema, no jvd GI/: active bowel sounds, no abd pain or tenderness, soft, non distended Extremities: normal range of motion, normal strength, non tender Neuro/Psych: alert and oriented x 3, normal mood and affect Skin: normal color, dry (Magda Isidro CRNP) Laboratory Results Last 24 Hours Test 11/26/17 07:30 White Blood Count 13.27 K/uL Red Blood Count 4.38 M/uL Hemoglobin 12.5 g/dL Hematocrit 37.5 % Mean Corpuscular Volume 85.6 fL Mean Corpuscular Hemoglobin 28.5 pg Mean Corpuscular Hemoglobin Concent 33.3 g/dl Platelet Count 239 K/uL Mean Platelet Volume 8.9 fL Neutrophils (%) (Auto) 86.1 % Lymphocytes (%) (Auto) 7.1 % Monocytes (%) (Auto) 6.5 % Eosinophils (%) (Auto) 0.1 % Basophils (%) (Auto) 0.0 % Neutrophils # (Auto) 11.43 K/uL Lymphocytes # (Auto) 0.94 K/uL Monocytes # (Auto) 0.86 K/uL Eosinophils # (Auto) 0.01 K/uL Basophils # (Auto) 0.00 K/uL RDW Standard Deviation 41.8 fL RDW Coefficient of Variation 13.2 % Immature Granulocyte % (Auto) 0.2 % Immature Granulocyte # (Auto) 0.03 K/uL Sodium Level 138 mmol/L Potassium Level 4.3 mmol/L Chloride Level 103 mmol/L Carbon Dioxide Level 33 mmol/L Anion Gap 2.0 mmol/L Blood Urea Nitrogen 19 mg/dl Creatinine 1.02 mg/dl Est Creatinine Clear Calc Drug Dose 71.6 ml/min Estimated GFR () 69.7 Estimated GFR (Non- 60.2 BUN/Creatinine Ratio 18.9 Random Glucose 119 mg/dl Calcium Level 8.0 mg/dl Magnesium Level 2.0 mg/dl Total Bilirubin 0.6 mg/dl Aspartate Amino Transf (AST/SGOT) 97 U/L Alanine Aminotransferase (ALT/SGPT) 102 U/L Alkaline Phosphatase 124 U/L Total Protein 6.3 gm/dl Albumin 3.1 gm/dl Globulin 3.2 gm/dl Albumin/Globulin Ratio 1.0 (Magda Isidro, [place]) Assessment and Plan Ms. Tesfaye is a 57 year old woman her for R TKA R TKA post op day 1 - hgb stable, no apparent bleeding - Bowel regimen, DVT prophylaxis, pain control, PT/OT per primary team RACH non compliant with CPAP - Ms. Tesfaye had a CPAP many years ago but has since gotten rid of it - We will set up an at home outpatient sleep study for her, which she is agreeable to Moderately elevated LFTs - AST/ALT 97 and 102, alk phos 124, bili is wnl - repeat LFTs in am to trend - patient unaware of any history of liver disease 2/6 asymptomatic systolic murmur - patient denies any history of murmur - follow up with primary care outpatient HTN - continue amlodipine, chlorthalidone, and lisinopril, blood pressures stable Dyslipidemia - continue rosuvastatin Depression, anxiety - continue Cymbalta Plan (Magda Isidro, [place]) Supervising Note Dr. Ramirez I performed a history and physical examination on the patient. I reviewed above note and agree with it. I discussed plan with APC and patient. During my face to face encounter with the patient, I answered all of the patient's questions. Patient has no new complaints today. Vitals are stable. Normal heart rate. Clear lung sounds. Recommend home sleep study as outpatient. Will sign off case. Please call if any questions (Guanakito Ramirez M.D.)
[2017-11-26] MEDS: HYDROCODONE/ACETAMIN 5/325MG TAB PO PRN ×2 (11:27→18:04)
[2017-11-26] MEDS: SENNA 8.6 MG TAB PO SCH (21:00)
[2017-11-27] MEDS: HYDROCODONE/ACETAMIN 5/325MG TAB PO PRN ×2 (01:48→10:28)
[2017-11-27 07:35] VITALS: BP 112/72; PULSE 66; TEMP 36.7; O2SAT 92
[2017-11-27] MEDS: TRAMADOL HCL 50 MG TAB PO PRN ×2 (07:54→13:43)
[2017-11-27 08:09] LABS: HEMATOCRIT 37.2 % (37-47); HEMOGLOBIN 12.1 g/dL (12.0-16.0); MEAN CELL VOLUME 87.1 fL (80-100); MEAN CORPUSCULAR HEMOGLOBIN 28.3 pg (25-34); MEAN CORPUSCULAR HGB CONC 32.5 g/dl (32-36); MEAN PLATELET VOLUME 9.1 fL (7.4-10.4); PLATELET COUNT 223 K/uL (130-400); RED CELL DISTRIBUTION WIDTH CV 13.5 % (11.5-14.5); WHITE BLOOD COUNT 7.35 K/uL (4.8-10.8)
[2017-11-27 08:43] LABS: ALBUMIN 3.1 gm/dl (3.4-5.0); CALCIUM 8.3 mg/dl (8.5-10.1); CREATININE 1.1 mg/dl (0.60-1.20); POTASSIUM 3.5 mmol/L (3.5-5.1); TOTAL PROTEIN 6.4 gm/dl (6.4-8.2)
[2017-11-27] MEDS: FERROUS GLUCONATE 324 MG TAB PO SCH ×2 (09:09→12:39)
[2017-11-27] MEDS: DOCUSATE SODIUM 100 MG CAP PO SCH (09:10)
[2017-11-27] MEDS: POM~FLUTICASONE FUROATE-VILANTEROL 30 PUFFS/INHALER INH INH SCH (09:10)
[2017-11-27] MEDS: CHLORTHALIDONE 25 MG TAB PO SCH (09:11)
[2017-11-27] MEDS: ROSUVASTATIN CALCIUM 10 MG TAB PO SCH (09:11)
[2017-11-27] MEDS: DULOXETINE (CYMBALTA) 30 MG CAP PO SCH (09:11)
[2017-11-27] MEDS: MULTIVITAMIN TAB PO SCH (09:12)
[2017-11-27] MEDS: AMLODIPINE BESYLATE 5 MG TAB PO SCH (09:12)
[2017-11-27] MEDS: LISINOPRIL 20 MG TAB PO SCH (09:13)
[2017-11-27] MEDS: PANTOprazole SOD 40 MG TAB PO SCH (09:13)
[2017-11-27] MEDS: RIVAROXABAN 10 MG TAB PO SCH (09:13)
--- NOTE | 2017-11-27 10:12 | Orthopedic Progress Note ---
Orthopedic Progress Note Date of Service Nov 27, 2017. Subjective Post OP Day: 2 Reports: feeling well, pain controlled w PO medications, Denies: chest pain, SOB , nausea / vomiting, light headedness, calf pain Objective calves soft nontender, N/V intact, capillary refill less than 2 sec., dressing C /D/I, incision C/D/I, A&O x3, toes mobile Date Time Temp Pulse Resp B/P (MAP) Pulse Ox O2 Delivery O2 Flow Rate FiO2 11/27/17 07:50 Room Air 11/27/17 07:35 36.7 66 16 112/72 (85) 92 Room Air 11/27/17 00:00 Room Air 11/26/17 23:02 36.8 72 16 100/60 (73) 95 Room Air 11/26/17 20:00 92 Room Air 11/26/17 15:06 36.7 70 16 118/60 (79) 92 Room Air 11/26/17 11:20 36.6 58 16 149/71 (97) 97 Room Air Laboratory Results 24 Hours: Test 11/27/17 07:30 Hematocrit 37.2 % Hemoglobin 12.1 g/dL Assessment & Plan Assessment: 57 yo female stable POD #2 s/p right TKA Plan: 1. Med management 2. DVT prophylaxis- Erik Cardoso 3. PT/OT 4. D/C planning- home w/ HH today Inhouse Planning Pain Management: Tony Monahan DVT Prophylaxis: Erik Salazar Xarelto Discharge Planning Discharge Planning: home with home health Pain Management: Oxy IR DVT Prophylaxis: Walker Saalzar Therapy: Physical Therapy
[2017-11-27] MEDS ORDERED: HYDR-5688 PO (10:16)
[2017-11-27] MEDS ORDERED: ONDA-170 PO (10:16)
[2017-11-27] MEDS ORDERED: FRRG PO (10:16)
[2017-11-27] MEDS ORDERED: XRL10 PO (10:16)
[2017-11-27 12:30] VITALS: BP 112/72; PULSE 66; TEMP 36.7; O2SAT 92
== END 2017-11-27 14:30 | disposition home health service (06) | DRG 470 ==
LOC: C.ACU 06:29 → C.MSW 06:55 → ENRESERV 11:12
PROC: 0SRC0J9 Replacement of Right Knee Joint with Synthetic Substitute, Cemented, Open Approach (ICD-10-PCS; principal; 2017-11-25 08:45)
DX: M17.11 Unilateral primary osteoarthritis, right knee (principal); G47.33 Obstructive sleep apnea (adult) (pediatric); Z91.19 Patient's noncompliance with other medical treatment and regimen; R79.89 Other specified abnormal findings of blood chemistry; R01.1 Cardiac murmur, unspecified; I10 Essential (primary) hypertension; E78.00 Pure hypercholesterolemia, unspecified; J45.909 Unspecified asthma, uncomplicated; M79.7 Fibromyalgia; F32.9 Major depressive disorder, single episode, unspecified; F41.9 Anxiety disorder, unspecified; K21.9 Gastro-esophageal reflux disease without esophagitis; E66.9 Obesity, unspecified; Z68.38 Body mass index [BMI] 38.0-38.9, adult; Z98.84 Bariatric surgery status; Z90.49 Acquired absence of other specified parts of digestive tract; Z98.890 Other specified postprocedural states; Z79.51 Long term (current) use of inhaled steroids; Z79.899 Other long term (current) drug therapy; Z88.5 Allergy status to narcotic agent; Z88.6 Allergy status to analgesic agent; Z88.8 Allergy status to other drugs, medicaments and biological substances